=== PATIENT | male | born 1995 | race Caucasian/White ===

== ENCOUNTER 2017-10-08 00:10 | Emergency (ER) | payer OTHER ==
[~2017-10-08] VITALS: Ht 170.2 cm; Wt 81.6 kg
[2017-10-08 00:14] VITALS: BP 124/78
--- NOTE | 2017-10-08 00:19 | NUR ---
TO LOBBY, A/W DANIELA MIRANDA ERMD NOTED
--- NOTE | 2017-10-08 01:13 | NUR ---
PT C/O RASH TO BL HANDS X4 HOURS, SKIN TO HANDS IS WARM, DRY, INTACT, RED DOTS NOTED TO PALMS OF HANDS. PT STATES HE HAS BURNING, NEEDLE LIKE PAIN UPON MAKING A FIST. PT STATES RASH STARTED 4 HOURS AGO AFTER HE WAS WORKING ON HIS CAR. NO PMH, NKA
[2017-10-08 02:02] VITALS: BP 116/71
--- NOTE | 2017-10-08 02:02 | NUR ---
Patient discharged with v/s stable. Written and verbal after care instructions given and explained. Patient alert, oriented and verbalized understanding of instructions. Ambulatory with steady gait. All questions addressed prior to discharge. ID band removed. Patient advised to follow up with PMD. Rx of BENADRYL, MOTRIN given. Patient educated on indication of medication including possible reaction and side effects. Opportunity to ask questions provided and answered.
== END 2017-10-08 02:02 | disposition home or self-care (01) ==
LOC: MED 00:10
DX: R21 Rash and other nonspecific skin eruption (principal); M79.641 Pain in right hand; M79.642 Pain in left hand
CPT/HCPCS: 99282